=== PATIENT | male | born 1995 | race Caucasian/White ===

== ENCOUNTER 2022-03-27 13:22 | Emergency (ER) | payer OTHER ==
[~2022-03-27] VITALS: Ht 188 cm; Wt 127.0 kg
[2022-03-27] MEDS ORDERED: IBUPROFEN 400MG TABLET PO ONE (14:00)
[2022-03-27 14:40] VITALS: BP 138/82
== END 2022-03-27 14:55 | disposition home or self-care (01) ==
LOC: ER 13:22
DX: R07.81 Pleurodynia (principal); M79.642 Pain in left hand; M79.641 Pain in right hand; G89.11 Acute pain due to trauma; I10 Essential (primary) hypertension; Y08.89XA Assault by other specified means, initial encounter; Y93.89 Activity, other specified; Y92.89 Other specified places as the place of occurrence of the external cause; J45.909 Unspecified asthma, uncomplicated; Z88.1 Allergy status to other antibiotic agents; Z65.3 Problems related to other legal circumstances
CPT/HCPCS: 71101; 99283

== ENCOUNTER 2022-12-21 11:28 | Emergency (ER) | payer OTHER ==
[~2022-12-21] VITALS: Ht 188 cm; Wt 127.0 kg
[2022-12-21 11:35] VITALS: TEMP 98; O2SAT 96
[2022-12-21] MEDS ORDERED: MORPHINE SULFATE 4 MG/ML CPJ (NOT FOR IM USE) IV ONE (12:15)
[2022-12-21] MEDS ORDERED: MORPHINE SULFATE 10 MG/ML CPJ IV ONE (12:15)
[2022-12-21] MEDS ORDERED: SODIUM CHLORIDE 0.9% IV ONE (12:15)
[2022-12-21] MEDS ORDERED: VANCOMYCIN 1G PREMIX 200 ML IV SCH (12:15)
[2022-12-21] MEDS ORDERED: CEFTRIAXONE 1GM PREMIX 50 ML IV ONE (12:15)
[2022-12-21 12:48] LABS: BASOPHILS % 1.2 % (0.0-2.0); EOSINOPHILS % 1.6 % (0.0-5.0); HEMATOCRIT. 44.7 % (42.0-52.0); HEMOGLOBIN. 15.3 g/dL (14.0-18.0); LYMPHOCYTES % 20.7 % (20.0-50.0); MEAN CORPUSCULAR HGB CONC 34.2 g/dL (31.0-37.0); MEAN CORPUSCULAR VOLUME 90.6 fL (80.0-94.0); MONOCYTES % 8.3 % (2.0-8.0); NEUTROPHILS % 68.2 % (40.0-76.0); PLATELET 293 x1000/uL (130-400); RED BLOOD CELL COUNT 4.94 mill/uL (4.7-6.1); RED CELL DISTRIBUTION WIDTH 13.3 % (11.6-14.6); WHITE BLOOD COUNT 10.3 x1000/uL (4.5-11.0)
[2022-12-21 13:01] LABS: PROTHROMBIN TIME 10.8 sec (9.6-11.0)
[2022-12-21 13:13] LABS: CALCIUM 9.3 mg/dL (8.5-10.1); CHLORIDE 107 mEq/L (98-107); GLUCOSE 112 mg/dL (70-105); INDEX HEMOLYSI 1 (1-3); INDEX ICTERIC 1 (1-4); INDEX LIPEMIC 1 (1-3); POTASSIUM 3.5 mEq/L (3.5-5.1); SODIUM 139 mEq/L (136-145); UREA NITROGEN BLOOD 7 mg/dL (7-21)
[2022-12-21 13:19] LABS: ALANINE AMINOTRANSFERASE 75 IU/L (13-61); ALBUMIN 3.9 g/dL (3.4-5.0); ASPARTATE AMINOTRANSFERASE 37 IU/L (15-37); BILIRUBIN TOTAL 1.5 mg/dL (0.1-1.0); CARBON DIOXIDE 24 mEq/L (21-32); CREATININE 0.7 mg/dL (0.6-1.3); PROTEIN TOTAL 7.8 g/dL (6.0-8.3)
[2022-12-21 21:03] VITALS: BP 132/94; PULSE 60; RESP 18
== END 2022-12-21 21:25 | disposition short-term general hospital (02) ==
LOC: ER 11:28
DX: T20.00XA Burn of unspecified degree of head, face, and neck, unspecified site, initial encounter (principal); J45.909 Unspecified asthma, uncomplicated; I10 Essential (primary) hypertension; Z20.822 Contact with and (suspected) exposure to COVID-19; X58.XXXA Exposure to other specified factors, initial encounter
CPT/HCPCS: 80053; 85025; 85610; 36415; 96374; 96375; 99291; 87426; J0696; J3370; J2270; J7030; C9803; Z7610 ×6

== ENCOUNTER 2024-04-13 19:02 | Emergency (ER) | payer MEDICAID, OTHER ==
[~2024-04-13] VITALS: Ht 185.4 cm; Wt 114.0 kg
[2024-04-13 19:03] VITALS: BP 140/93; PULSE 97; RESP 18; TEMP 36.8; O2SAT 100
== END 2024-04-13 19:41 | disposition left against medical advice (07) ==
LOC: ER 19:02
DX: F10.129 Alcohol abuse with intoxication, unspecified (principal); J45.909 Unspecified asthma, uncomplicated; I10 Essential (primary) hypertension; Z88.0 Allergy status to penicillin; Y90.9 Presence of alcohol in blood, level not specified
CPT/HCPCS: 99283